=== PATIENT | female | born 1980 | race Caucasian/White ===

== ENCOUNTER 2023-06-12 12:30 | Day surgery (SDC) | payer OTHER, MEDICAID, SELFPAY ==
[2023-06-02 07:23] VITALS: BMI 39.1
[2023-06-12] VITALS (12 sets, daily range): BP systolic 93–123; BP diastolic 42–84; PULSE 71–86; RESP 12–21; TEMP 36.2–36.9; O2SAT 95–100; BMI 38.2
--- NOTE | 2023-06-12 | PATH_ITS ---
[facility] Accession Number: [id number] No. of containers..01 Tissue . 01 Material submitted: . uterus - UTERUS, RIGHT FALLOPIAN TUBE . 01 Diagnosis: Uterus, Right Fallopian Tube; Hysterectomy and Right Salpingectomy: Fragmented uterus, 386 grams. Proliferative phase endometrium without endometrial polyps, hyperplasia, atypia or malignancy. Benign leiomyomas, up to 2.4 cm (per gross description) with degenerative changes, without significant atypia, mitotic activity, necrosis or malignancy. Focal adenomyosis. Benign fallopian tube, right side, and paratubal cyst. Negative for dysplasia and malignancy. [facility] 06/24/2023 1735 Local . 01 Electronically signed: . Daryl De Souza MD, Pathologist NPI- [id number] . 01 Gross description: . The specimen is received in formalin labeled with the patient's name, , and uterus, right fallopian tube, and consists of a fragmented uterus (386 grams and aggregating to 15.6 x 11.7 x 4.5 cm) and a framented fimbriated fallopian tube measuring 5.2 cm in aggregate length and 0.7 cm in diameter with no additional adnexa. The serosa is vernon and smooth with no evidence of hemorrhage or adhesion identified. The endometrium is red-brown, velvety, and averages 0.1 cm thick with no lesions identified. The myometrium is pink-vernon and trabecular with multiple white whorled nodules measuring up to 2.4 cm in greatest dimension with no hemorrhage or necrosis identified. . The fragmented fallopian tube has vernon serosa with attached adipose and no cystic structures grossly identified. Sectioning reveals an unremarkable patent lumen. . Assistant Professor Of [employer] sections are submitted as follows: A1: Endometrium. A2: Serosa. A3: Additional possible endometrium. A4: Assistant Professor Of Philosophy nodules. A5: Fallopian tube to include one-half of bisected fimbriae and cross-sections. ([id number]) /JOAQUINA 06/24/2023 1735 Local . 01 Pathologist provided ICD-10: D25.0, N92.0 . 01 CPT . 014084 Performed at: 01 [facility] [address] [place] [address], [place], [place] [id number] MD Devyn Whalen MD Phone: [phone]
--- NOTE | 2023-06-12 13:15 | PM.PREOP ---
Pre-operative Note COVID-19 Criteria for continued procedure: Expected advancement of disease process Interval Note History & Physical reviewed/Exam performed by Physician: Yes Changes to H&P: No
[2023-06-12] MEDS: LACTATED RINGERS 1,000 ML 100 ML IV ×3 (13:16→17:27)
[2023-06-12] MEDS: CEFAZOLIN 2 GM/100 ML PREMIX 100 ML IV (13:53)
--- NOTE | 2023-06-12 14:02 | SUR.OPER ---
Lithotomy on padded OR bed, head on pillow, arms secured on padded arm boards at <90 degrees abduction. Legs secured in padded yellow fins stirrups.
[2023-06-12] MEDS: BUPIVACAINE 0.5% (PF) 30 ML, EPINEPHrine 0.15 MG INJ (14:16)
[2023-06-12] MEDS: ROPIVACAINE 0.2% PF 2 MG/ML 20ML AMP 20 ML INJ (15:37)
--- NOTE | 2023-06-12 16:09 | P.OP_ITS ---
Operative Date/Time/Diagnoses Date of procedure: 06/12/23 Time of procedure: 16:09 Pre-op diagnosis: Menorrhagia from large uterine fibroids Post-op diagnosis: same Procedure & Clinicians Procedure: Laparoscopic supracervical hysterectomy with right salpingectomy and extensive lysis of adhesions Same procedure as scheduled: Yes Indications: Menorrhagia with regular cycle and large uterine fibroids Surgeon: Rima Stratton Market Research Intern: Sherman Kay Click Yes if Unassisted: No Anesthesia Type: General Operative Notes Findings: 4 cm fibroid prolapsed out of the cervix into the vagina, large uterine fibroids, status post left salpingo oophorectomy and right tubal ligation. No endometriosis. Omentum stuck over a quarter of the lower abdomen to the anterior abdominal wall. Adhesions on the left side of the uterus where the tube and ovary were removed. Closure Type: primary Specimen(s): other (Uterus not including the cervix and right fallopian tube) Applied: catheter (Hirsch removed at the end of the case) Estimated Blood Loss (mL): 50 Blood products transfused: none Procedure in detail: Patient is brought to the operating room where she underwent general anesthesia and placed in [facility]. She was prepped and draped in the usual sterile fashion. A check list was reviewed with the staff in the room prior to beginning of the case. Patient had pulsatile stockings in place and functional. 2 g of Ancef were in prior to beginning of the case.. A Hirsch catheter was placed. A speculum was placed in the vagina. The prolapsing fibroid was grasped and using cautery was morcellated to allow removal. A single-tooth tenaculum was placed on the anterior lip of the cervix and the cervix dilated to a #6 Hegar dilator. The VCare uterine manipulator was placed through the cervix into the uterus with the balloon inflated with 10 mL of air. The area of the umbilical incision and the 5 mm right and left lower quadrant incisions were injected with Marcaine. An incision was made with scalpel. The verries needle was placed into the abdomen and confirmed in the appropriate place with withdrawal on a syringe and then free flow of fluid down through the needle. The abdomen was insufflated with CO2. The needle was removed and a 5 mm trocar placed without difficulty. There did not appear to be any damage is placement of the trocar. A trocar was placed in the left upper abdomen to allow visualization and cauterization of the omentum to the anterior abdominal wall and the adhesions to the left side of the uterus. A lower left lower quadrant incision was made with the scalpel and the trochar placed without damage to internal structures. The power seal forceps were used to cauterize the mesosalpinx. The segment of tube on the right side was removed and brought out through a 5 mm port. The power seal was used to cauterize the round ligaments on both sides. Sequential bites were taken down the broad ligaments. The uterine arteries were cauterized. An incision was made above the level bladder pushing the bladder away from the cervix. The KENDAL loop was placed around the uterus and the uterus was amputated above the level of the bladder. Bleeding wa s controlled with the power seal forceps. The monopolar spatula was used to cauterize in the endocervical canal. A supracervical incision was made and an 11 mm port placed. The fascia was incised laterally. Rectus muscle separate to allow placement of a large Petros catch bag into the abdomen. The uterus was placed in the bag and brought up through the suprapubic site. The uterus was hand morselized. The fascial layer was repaired with 0 Vicryl suture. The abdomen was reinsufflated and adequate hemostasis was noted. 20 cc of ropivacaine were placed over the cervical stump. The trochars were removed and the CO2 allowed escape from the abdomen. The adipose layer space was reapproximated with interrupted 2 0 Vicryl suture. Skin was closed with 4-0 Monocryl suture at the suprapubic site and the other 4 sites. The patient went to recovery room in good condition. Counts of instruments and sponges were correct. Dr. Kay was present throughout the case to assist with holding the camera, retracting, cauterizing and cutting the structures on the left side of the patient, as well as assisting with morselization of the uterus. Complications: none Post-operative Condition: stable Disposition: Acute Care [place] when stable
[2023-06-12] MEDS: OXYCODONE/ACETAMINOPHEN 5/325 TABLET 1 TAB PO (16:20)
[2023-06-12] MEDS: ACETAMINOPHEN 325 MG TABLET 650 MG PO ×2 (17:26→21:51)
[2023-06-12] MEDS: KETOROLAC 30 MG/ML VIAL IV ×2 (17:26→21:52)
--- NOTE | 2023-06-12 18:58 | PC.NURSE ---
Day shift: Patient arrived to the unit 1640. VS WNL, denies nausea, SOB, pain is adequately controlled with ordered pain medications. 4 abdominal incisions covered w/ dressing that is clean, dry & intact. OOB w/ SBA, tolerated well, attempted to void but was unable to at the moment. Ate dinner and tolerated general diet well. Patient is oriented to the room, call light within reach, bed alarm is on.
[2023-06-12] MEDS: DOCUSATE 100 MG CAPSULE 200 MG PO (21:52)
[2023-06-13 02:00] VITALS: BP 111/60; PULSE 76; RESP 18; TEMP 36.4; O2SAT 94
[2023-06-13] MEDS: LACTATED RINGERS 1,000 ML 100 ML IV (03:08)
[2023-06-13] MEDS: ACETAMINOPHEN 325 MG TABLET 650 MG PO (04:42)
[2023-06-13] MEDS: KETOROLAC 30 MG/ML VIAL IV (04:42)
[2023-06-13 05:10] VITALS: BP 108/55; PULSE 81; RESP 18; TEMP 36.5; O2SAT 95
[2023-06-13 07:00] VITALS: O2SAT 98
[2023-06-13 08:11] VITALS: BP 101/63; PULSE 78; RESP 18; TEMP 36.1; O2SAT 96
[2023-06-13] MEDS: OXYCODONE IR 5 MG TABLET PO (08:35)
[2023-06-13] MEDS: DOCUSATE 100 MG CAPSULE 200 MG PO (08:36)
--- NOTE | 2023-06-13 08:48 | PM.DS.1 ---
History of Present Illness History of Present Illness Date Patient Seen: 06/13/23 Time Patient Seen: 08:49 Date of Onset of Symptoms: 06/12/23 Chief complaint: OPB Narrative: Patient underwent laparoscopic supracervical hysterectomy with right salpingectomy on 06/12/2023 Discharge Providers Provider Discharge Date: 06/13/23 Primary care physician: Isatu Mckee MD Discharge provider: Rima Stratton MD Summary Hospital Course Discharge Diagnosis: Menorrhagia with regular cycle with large uterine fibroids status post laparoscopic supracervical hysterectomy with right salpingectomy Hospital Course: Patient underwent a laparoscopic supracervical hysterectomy with right salpingectomy with extensive lysis of adhesions on 06/12/2023. She is tolerating regular diet. She is ambulatory. She is urinating well. She has not started passing gas yet. Her pain is tolerable. Status at Discharge Cognitive/behavioral status at discharge: oriented Functional status at discharge: independent ambulation Overall status at discharge: patient is progressing back to baseline Time Spent with Patient Time spent: Less than 30 minutes Exam Vital Signs (past 8 hours): - 06/13/23 02:00 06/13/23 05:10 06/13/23 08:11 Temperature 97.6 F 97.7 F 96.9 F L Pulse Rate 76 81 78 Respiratory Rate 18 18 18 Blood Pressure 111/60 108/55 L 101/63 Pulse Oximetry 94 95 96 Oxygen Flow Rate 0 0 0 Oxygen Delivery Method Room Air Oxygen Flow Rate 0 Narrative Exam Narrative: Abdomen is soft, nontender. Dressings are clean, dry, intact. Mild vaginal bleeding. Extremities without edema and nontender. [facility] Medical History Chicken pox (~1984) Headache Hemorrhoid (~2006) Migraines Ovarian cyst (~1998) Rosacea Surgical History Anesthesia History of appendectomy (~1987) History of section History of left oophorectomy (~1998) Family History Father Cancer History of heart attack Mother Prediabetes History of blood clots Grandmother Stroke Grandfather History of heart disease Grandmother Diabetes mellitus History of heart disease Social History household members: significant other Smoking Status: Never smoker Discharge Assessment & Plan Assessment and Plan Assessment: Status post laparoscopic supracervical hysterectomy with right salpingectomy and extensive lysis of adhesions who is stable enough to be discharged home. Plan of Treatment: Follow-up in 2 weeks. Discussion of care of incisions. Call for pain that is not controllable, signs or symptoms of infection, nausea vomiting, other concerns. Discharge Plan Discharge Plan Patient Disposition: Home Discharge orders & Medications Discharge Orders: Discharge (Order); Ordered 06/13/23 Ordered By: Rima Stratton Prescriptions: Continued oxycodone 5 mg tablet 5 mg PO Q4H PRN (Reason: pain) Qty: 20 0RF Patient Comments: Has not taken it yet. Was prescribed for post-op pain multivitamin Tablet 1 tab PO DAILY cetirizine [Zyrtec] 10 mg Tablet 10 mg PO DAILY PRN (Reason: Allergy Symptoms) calcium carbonate [Tums] 200 mg calcium (500 mg) Tablet,Chewable 200 mg PO PRN PRN (Reason: Heartburn) ibuprofen [Advil] 200 mg Tablet 400 mg PO Q6H Follow up/Referrals: Rima Stratton MD [Physician] - (Patient has postop appointment already scheduled in 2 weeks) Isatu Mckee MD [Primary Care Provider] - Diet/Activity/Treatments Diet: Regular Activity: No restrictions Skin/Wound/Dressing Care Report to your healthcare provider any signs of infection, such as:: chills, fever and increased pain Dressing: Remove Band-Aids and lower abdominal dressing later today. Leave Steri-Strips in place for 1 we can get wet just pat dry. In one-week get wet and rub off Visit Report/Discharge Packet Instructions: DI for Hysterectomy, DI for Laparoscopy Stand Alone Forms: Patient Portal/API Discharge Data Primary Care Provider: Isatu Mckee Attending Provider: Rima Stratton
--- NOTE | 2023-06-13 10:50 | CM.DANOTE ---
DCP Assessment Note: Patient is a 43yo female here for a planned Laparoscopic supracervical hysterectomy with Dr. Stratton on 06/12/23. PCP Isatu Weldon and Medicaid CASE RESOURCE MANAGER reviewed EMR. Per note, likely home with family no needs. Per nursing staff, [place] boarding pass [place]. CASE RESOURCE MANAGER entered room and introduced self and role. Patient was up and moving around in room, appeared A/Ox4 and active/independent. Drives. Lives with life partner Tonny ([phone]) and their two children, 16yr old and 13yr old. Lives [place]. Patient reports no needs from CM team at this time. Plan: patient will d/c home with family and take ferry to [place]. No needs at this time. CM team will continue to follow as needed. LOKI Fonseca Discharge Planning/Care Management CM Discharge Assessment Start: 06/13/23 10:40 Freq: Status: Active Protocol: Document 06/13/23 10:40 SL (Rec: 06/13/23 10:49 SL [id number]) Discharge Planning Assessment Assigned Exchange Floor Manager LOKI Dillard DPOA/Assigned Designee Name Tonny Osman (partner) Contact Information [phone] Advance Directives? No History Provided By Patient,Medical Record Prior Living Arrangements House Household Members significant other,children Comment life partner and 16 and 13yr children. Type of transporation used prior to Drives own vehicle admit Independent with ADL's Yes Is patient alert and oriented? Yes Barriers to Discharge No Discharge Plan Home Transportation Arrangement family in [place] and then ferry, nurse completed ferry priority boarding pass Whiteboard Updated in Patient Room with Yes name and ext. # of Exchange Floor Manager Review Status In Process Next Review Type Continued Stay Review Pre-Anesthesia Assessment Start: 06/02/23 07:23 Freq: Status: Active Protocol: Document 06/02/23 07:23 AK (Rec: 06/02/23 07:25 AK [id number]) Pre-Anesthesia Assessment Patient Information Reviewed Via Chart Review Seen Specialist in Last 12 Months Yes Specialist Seen [employer] Home Makeup Artist Height 165.1 cm Weight 106.594 kg Body Mass Index (BMI) 39.1 Smoking Status Never smoker
--- NOTE | 2023-06-13 10:56 | PC.NURSE ---
Pt med w/oxycodone after breakfast w/ good relief. Orders for discharge recieved Dsg CDI HL D/C intact Home instructions given w/understanding Pt escorted via W/C to waiting vehicle in stable post op status.
== END 2023-06-13 10:45 | disposition home or self-care (01) ==
LOC: OR 12:31 → AC 15:45
PROVIDERS: Family Provider Obstetrics & Gynecology; PCP Specialist; Referring Provider Specialist; Visit Provider Specialist
PROC: 0UT94ZL Resection of Uterus, Supracervical, Percutaneous Endoscopic Approach (ICD-10-PCS; CPT 58544; principal; 2023-06-12 13:30)
DX: D25.0 Submucous leiomyoma of uterus (principal); N92.0 Excessive and frequent menstruation with regular cycle; N73.6 Female pelvic peritoneal adhesions (postinfective); N83.8 Other noninflammatory disorders of ovary, fallopian tube and broad ligament
CPT/HCPCS: 58544; 58542; 81025; J0171; J0690; J1100; J1170; J1885; J2250; J2405; J2704; J2795; J3010